=== PATIENT | male | born 1960 | race Caucasian/White ===

== ENCOUNTER 2020-10-11 17:19 | Emergency (ER) | payer BC, OTHER ==
[~2020-10-11] VITALS: Ht 190.5 cm; Wt 97.5 kg
[2020-10-11] MEDS ORDERED: LIDOCAINE 1% VIAL ONE (17:23)
[2020-10-11 17:25] VITALS: BP 148/78
[2020-10-11 17:30] VITALS: BP 148/74
[2020-10-11] MEDS ORDERED: ADACEL VIAL IM ONE ×2 (17:39→18:00)
[2020-10-11] MEDS ORDERED: ULTRAM PO STA (17:39)
[2020-10-11] MEDS ORDERED: TRIPLE ANTIBIOTIC OINTMENT TP ONE (17:40)
[2020-10-11] MEDS ORDERED: ULTRAM ONE (17:41)
--- NOTE | 2020-10-11 17:44 | ER.PDOC ---
General Chief Complaint: Extremities Stated Complaint: HAND INJURY Time seen by MD: 17:40 Source: patient Exam Limitations: no limitations History of Present Illness Initial Comments Laceration of left hand with the knife. Occurred: just prior to arrival Where: home Severity: moderate Context: laceration Location of Injury: (R) hand Modifying Factors: pain on movement Allergies: Coded Allergies: No Known Allergies (Unverified , 10/11/20) Past Medical History Medical History: no pertinent history Surgical History: other Family History Significant Family History: no pertinent family hx Social History Smoking: non-smoker Alcohol Use: none Drug Use: none Review of Systems Constitutional: no symptoms reported EENTM: no symptoms reported Respiratory: no symptoms reported Cardiovascular: no symptoms reported Gastrointestinal: no symptoms reported Skin: see HPI All Other Systems: Reviewed and Negative Physical Exam General Appearance: Alert, No Apparent Distress Hand: see diagram Wrist: nml inspection, non-tender, nml ROM 1 - Lac Neuro: sensation nml, motor nml Vascular: no vascular compromise Tendons: tendon function nml Forearm/Elbow/Arm: uninjured above wrist Head/ENT: nml inspection, pharynx nml Neck/Back: nml inspection, non-tender Resp/CVS: no resp distress, lungs clear, heart sounds nml, reg. rate & rhythm Abdomen: non-tender, no organomegaly ED LACERATION WOUND REPAIR # of Wounds/Lacerations Presen: 1 Wound Location & Length (Requi: Left hand Wound Length (cm): 2 Wound cleaned: betadine Anesthesia: 1% Lidocaine Volume Anesthetic (ccs): 5 Wound's Depth, Shape: linear Irrigated w/ Saline (ccs): 20 Wound Repaired With: sutures Suture Size/Type: 4:0, ethilon Suture Style: interupted Number of Sutures: 3 Sterile Dressing Applied?: Yes Results/Orders Results/Orders Orders - RIMMA ROMERO MD Diph,Pertuss(Acell),Tet Vac/Pf (Adacel V (10/11/20 18:00) Tramadol Hcl (Ultram) (10/11/20 17:39) Vital Signs Date Time Temp Pulse Resp B/P (MAP) Pulse Ox O2 Delivery O2 Flow Rate FiO2 10/11/20 17:30 98.4 87 18 148/74 (98) 97 Room Air 10/11/20 17:25 98.4 87 18 97 10/11/20 17:25 98.4 87 18 ER DEPART Departure Time of Disposition: 17:43 Disposition: 01 HOME / SELF CARE / HOMELESS Impression: Primary Impression: Laceration of hand, left Additional Impression: Hand injury Condition: Stable Referrals: PCP,UNKNOWN (PCP) PRIMARY CARE PROVIDER Additional Instructions: Keflex Tylenol Apply Neosporin daily Remove sutures in 8 days at your PCP or ED Return to ED if any concerns Duration or Time Spent with Pa: 20 min Problem Qualifiers Primary Impression: Laceration of hand, left Encounter type: initial encounter Foreign body presence: without foreign body Qualified Codes: S61.412A - Laceration without foreign body of left hand, initial encounter Additional Impression: Hand injury Encounter type: initial encounter Laterality: left Qualified Codes: S69.92XA - Unspecified injury of left wrist, hand and finger(s), initial encounter RIMMA ROMERO MD Oct 11, 2020 17:44
[2020-10-11 17:52] VITALS: BP 141/68
== END 2020-10-11 17:51 ==
LOC: ER 17:19
DX: S61.412A Laceration without foreign body of left hand, initial encounter (principal); W26.0XXA Contact with knife, initial encounter; Y93.89 Activity, other specified; Y92.89 Other specified places as the place of occurrence of the external cause; Y99.8 Other external cause status
CPT/HCPCS: 12001; 90471; 90715; 99284; J2001

== ENCOUNTER 2020-12-11 09:40 | Emergency (ER) | payer BC ==
[~2020-12-11] VITALS: Ht 190.5 cm; Wt 99.8 kg
[2020-12-11 09:49] VITALS: BP 153/93
[2020-12-11 09:54] VITALS: BP 153/93
--- NOTE | 2020-12-11 10:10 | ER.PDOC ---
General Chief Complaint: Pediatric Ingestion/FB Stated Complaint: PILL STUCK IN THROAT TRAVEL OUT OF US: No Time seen by MD: 10:00 Source: patient Exam Limitations: no limitations History of Present Illness Initial Comments Patient is a 59-year-old man who presents the emergency department with chief complaint of having difficulty swallowing. Patient states he took an Ese-D about 20 hours ago and states he can still feel the pills stuck in his esophagus. He states he had problems with his swallowing for the last 5 to 6 years but is never had it checked. He states he has been unable to drink liquids without regurgitation. He states he is unable to swallow solid foods. He denies any chest pain or difficulty breathing. He denies any fever or diarrhea. He denies any cough. He also states that he is normally on Adderall for ADD but is traveling to [place] for work and has been unable to get his medications refilled. Timing/Duration: 24 hours, getting worse Severity: moderate Modifying Factors: improves with other (Nothing) Associated Symptoms: chest pain (None), cough (None) Allergies: Coded Allergies: No Known Allergies (Unverified , 10/11/20) Past Medical History Medical History: asthma, hypertension, other (ADD) Surgical History: other Family History Significant Family History: no pertinent family hx Social History Smoking: non-smoker Alcohol Use: none Drug Use: marijuana Review of Systems Constitutional: denies fever EENTM: denies throat pain Respiratory: denies cough, denies shortness of breath Cardiovascular: denies chest pain Gastrointestinal: denies diarrhea, denies nausea; vomiting Genitourinary: denies pain Musculoskeletal: denies neck pain Skin: denies rash Psychiatric/Neurological: denies anxiety Hematologic/Lymphatic: denies easy bleeding All Other Systems: Reviewed and Negative Physical Exam General Appearance: No Apparent Distress, WD/WN EENT: eyes nml inspection, nml ENT inspection, pharynx nml Neck: Non-Tender, Full Range of Motion, Supple Respiratory: chest non-tender, lungs clear, normal breath sounds, no respiratory distress CVS: reg rate & rhythm, no murmur, no gallop Gastrointestinal: Normal Bowel Sounds, No Organomegaly, No Pulsatile Mass, Non Tender Back: Normal Inspection, No CVA Tenderness, No Vertebral Tenderness Extremities: Normal Range of Motion, Non-Tender, Normal Inspection, No Pedal Edema Neurologic/Psychiatric: customer relations advisor II-XII NML as Tested, No Motor/Sensory Deficits, Alert, Normal Mood/Affect, Oriented x 3 Skin: Normal Color Results/Orders Results/Orders Orders - DELVIS RAMÍREZ MD Xr Chest 2v (12/11/20 10:03) Cbc With Auto Diff (12/11/20 11:36) Comprehensive Metabolic Panel (12/11/20 11:36) Saline Lock (12/11/20 11:36) Ct Chest W Iv Contrast (12/11/20 11:36) Vital Signs Date Time Temp Pulse Resp B/P (MAP) Pulse Ox O2 Delivery O2 Flow Rate FiO2 12/11/20 09:54 98.5 98 20 153/93 (113) 97 Room Air 12/11/20 09:49 98.5 98 20 97 12/11/20 09:49 98.5 98 20 Laboratory Tests Test 12/11/20 11:50 White Blood Count 12.8 10^3/uL (4.5-11.0) H Red Blood Count 4.87 10^6/uL (4.50-5.90) Hemoglobin 14.8 g/dL (13.9-16.3) Hematocrit 44.6 % (37.0-53.0) Mean Corpuscular Volume 91.6 fL (78-100) Mean Corpuscular Hemoglobin 30.4 pg (26-34) Mean Corpuscular Hemoglobin Concent 33.2 g/dL (33-36.5) Red Cell Distribution Width 13.6 % (11.5-14.5) Platelet Count 247 10^3/uL (150-400) Mean Platelet Volume 9.3 fL (7.8-11.0) Neutrophils (%) (Auto) 76.6 % (41.0-85.0) Lymphocytes (%) (Auto) 15.6 % (24.0-44.0) L Monocytes (%) (Auto) 5.8 % (5.0-12.0) Neutrophils # (Auto) 9.8 10^3/uL (1.8-7.7) H Lymphocytes # (Auto) 2.00 10^3/uL1 (1.0-4.8) Monocytes # (Auto) 0.7 10^3/uL (0.3-0.8) Absolute Immature Granulocyte (auto 0.03 10^3 u/L (0-2) Absolute Eosinophils (auto) 0.2 10^3/uL (0.0-0.2) Immature Granulocytes % 0.20 % (0.00-0.50) Eosinophils % 1.6 % (0.0-5.0) Basophils % 0.2 % (0.0-0.2) Basophils # 0.0 10^3/uL (0.0-0.1) Sodium Level 142 mmol/L (132-145) Potassium Level 4.4 mmol/L (3.6-5.2) Chloride Level 105.0 mmol/L (96-109) Carbon Dioxide Level 26.4 mmol/L (20.0-32) Anion Gap 15.0 Blood Urea Nitrogen 13 mg/dL (7-18) Creatinine 1.12 mg/dL (0.59-1.40) Estimated GFR () 81.5 (>/=60) Est GFR (CKD-EPI)(Non-Afr Swiss) 67.3 (>/=60) BUN/Creatinine Ratio 11.0 Glucose Level 96 mg/dL (70-110) Calcium Level 9.8 mg/dL (8.4-10.5) Total Bilirubin 0.8 mg/dL (0.2-1.0) Aspartate Amino Transferase (AST) 12 U/L (0-35) Alanine Aminotransferase (ALT) 20 U/L (12-78) Alkaline Phosphatase 107 U/L (50-136) Total Protein 8.1 g/dL (6.4-8.2) Albumin 4.1 g/dL (3.4-5.0) Globulin 4.0 Albumin/Globulin Ratio 1.025 Progress Progress Patient stated he was unable to swallow liquids or solids. He also states he was unable to swallow the pill and had foreign body sensation in his throat. He had a chest x-ray that showed mild COPD changes but no evidence of mass or swelling in the mediastinum. Since his x-ray was negative he had a CBC and CMP done both which were normal. He underwent CT of the chest which shows small hiatal hernia, bilateral pulmonary nodules measuring up to 8 mm in the left lower lobe, no other acute findings per the radiologist. Throughout the course of his emergency department stay he was ultimately able to swallow water without difficulty and his foreign body sensation improved. He will need an EGD for further evaluation and treatment of his esophagus. At [address] Castrejon of general surgery who stated he could call The office for an appointment to schedule EGD.Patient does not appear to have mediastinal mass, bulky lymphadenopathy, pulmonary tumor, pulmonary infection, retained foreign body, aortic aneurysm, or other serious etiology of his symptoms. Patient will be discharged home to follow-up with general surgery. I am unable to provide a prescription for his Adderall and he was given referrals for other physicians that might be able to help him with his medication refill. ER DEPART Departure Time of Disposition: 14:20 Disposition: 01 HOME / SELF CARE / HOMELESS Impression: Primary Impression: Difficulty swallowing Condition: Stable If Transfer, List PT Destinati: 1420 Dr. Castrejon agrees to see pt. in office to schedule EGD Referrals: PCP,UNKNOWN (PCP) PRIMARY CARE PROVIDER Additional Instructions: Return immediately if severe pain, difficulty breathing, difficulty swallowing, unable to swallow liquids, persistent vomiting, fever. Liquid diet. Drink lots of fluids. Follow-up with Dr. Benny Castrejon [address] [facility], phone [phone]. Follow-up with primary care physician or psychiatrist for Adderall refill Duration or Time Spent with Pa: 40 min Return to Work/School Can a patient return to work?: Yes Problem Qualifiers Primary Impression: Difficulty swallowing Dysphagia type: unspecified Qualified Codes: R13.10 - Dysphagia, unspecified DELVIS RAMÍREZ MD Dec 11, 2020 10:10
[2020-12-11 10:50] VITALS: BP 146/87
--- NOTE | 2020-12-11 11:31 | DIREP ---
PROCEDURE:CHEST 2 VIEWS COMPARISON:None. INDICATIONS:difficulty swallowing FINDINGS: LUNGS/PLEURA:No significant pulmonary parenchymal abnormalities. No effusions. VASCULATURE:Normal. Unremarkable pulmonary vasculature. CARDIAC:Normal. No cardiac silhouette abnormality or cardiomegaly. MEDIASTINUM:Normal. No visible mass or adenopathy. BONES:Mild degenerative disc disease and spondylosis without visible acute abnormalities. OTHER:Negative. CONCLUSION:No acute disease. Dictated by: Sebastian Perez MD on 12/11/2020 at 11:29 AM
[2020-12-11 11:55] LABS: BASOPHIL % 0.2 % (0.0-0.2); EOSINOPHIL # 0.2 10^3/uL (0.0-0.2); EOSINOPHIL % 1.6 % (0.0-5.0); LYMPHOCYTES % 15.6 % (24.0-44.0); MEAN CORP HGB 30.4 pg (26-34); MONOCYTES # 0.7 10^3/uL (0.3-0.8); MONOCYTES % 5.8 % (5.0-12.0); NEUTROPHIL # 9.8 10^3/uL (1.8-7.7); NEUTROPHILS % 76.6 % (41.0-85.0); PLATELET COUNT 247 10^3/uL (150-400); RED CELL DISTRIBUTION WIDTH 13.6 % (11.5-14.5)
[2020-12-11 12:15] VITALS: BP 130/80
[2020-12-11 12:46] LABS: CALCIUM 9.8 mg/dL (8.4-10.5); CARBON DIOXIDE 26.4 mmol/L (20.0-32)
--- NOTE | 2020-12-11 13:52 | DIREP ---
PROCEDURE:CT CHEST WITH CONTRAST COMPARISON:None. INDICATIONS:unable to swallow TECHNIQUE:Helical sections through the chest were performed from the lung apices through the diaphragms with IV contrast. Sagittal and coronal reconstructions are obtained from source images. FINDINGS: LUNGS:Trachea main pulmonary bronchi are patent. No focal consolidation or edema. Scattered bilateral pulmonary nodules measuring up to 8 mm in diameter at the left lower lobe image 60 series 2 and 6 mm in the right middle lobe image 54 series 2. The right middle lobe nodule is triangular in shape, possibly representing intrapulmonary lymph node. PLEURA:Normal. No mass or effusion. CARDIAC:Normal. No enlargement, pericardial thickening, or significant calcification. MEDIASTINUM:No mediastinal lymphadenopathy by CT size criteria. Small hiatal hernia with sub cm distal paraesophageal lymph nodes. HERNANDEZ:Normal. No mass or adenopathy. AORTA:Normal. No aneurysm. CHEST WALL:Normal. No mass or axillary adenopathy. LIMITED ABDOMEN:Hepatic steatosis. Rounded fluid densities in the right hepatic lobe may represent cysts. BONES:Degenerative change of the thoracic spine. No aggressive osseous lesion. OTHER:Negative. CONCLUSION: No CT evidence of acute thoracic pathology. Small hiatal hernia. Bilateral pulmonary nodules measuring up to 8 mm at the left lower lobe. Recommend short interval follow-up with low-dose noncontrast chest CT in 3-6 months to assess for stability. Dictated by: Theodore Quinteros MD on 12/11/2020 at 01:44 PM
[2020-12-11 14:25] VITALS: BP 136/84
== END 2020-12-11 14:25 | disposition home or self-care (01) ==
LOC: ER 09:40
DX: R13.10 Dysphagia, unspecified (principal); K44.9 Diaphragmatic hernia without obstruction or gangrene; J45.909 Unspecified asthma, uncomplicated; I10 Essential (primary) hypertension
CPT/HCPCS: 36415; 71046; 71260; 80053; 85025; 99285; Q9965

== ENCOUNTER 2021-01-10 08:10 | Day surgery (SDC) | payer BC ==
[2021-01-04 15:37] VITALS: BP 108/68
--- NOTE | 2021-01-04 15:59 | PCM.EKG ---
[facility] Test Date: 2021-01-04 Test Time: 15:48:44 Pat Name: IMTIAZ MANCINI Department: Room: Gender: M Shuttle Fixer: AMARA : 1960 Requested By: RAFA ASKEW Order Number: [id number] Reading MD: Pillo Munoz Measurements Intervals [place] Rate: 57 P: 75 [place]: 162 QRS: -8 QRSD: 122 T: 35 QT: 422 QTc: 410 Interpretive Statements Sinus bradycardia No previous ECG available for comparison Electronically Signed On 01-08-2021 6:32:10 CDT by Pillo Munoz Please click the below link to view image of tracing.
[2021-01-04 16:05] LABS: BASOPHIL % 0.4 % (0.0-0.2); EOSINOPHIL # 0.6 10^3/uL (0.0-0.2); EOSINOPHIL % 6.5 % (0.0-5.0); LYMPHOCYTES # 2.87 10^3/uL1 (1.0-4.8); MONOCYTES # 0.8 10^3/uL (0.3-0.8); MONOCYTES % 7.9 % (5.0-12.0); NEUTROPHIL # 5.6 10^3/uL (1.8-7.7); NEUTROPHILS % 56.1 % (41.0-85.0); PLATELET COUNT 232 10^3/uL (150-400); RED CELL DISTRIBUTION WIDTH 13.7 % (11.5-14.5)
[2021-01-04 16:26] LABS: CALCIUM 8.8 mg/dL (8.4-10.5); CARBON DIOXIDE 24.3 mmol/L (20.0-32)
[~2021-01-10] VITALS: Ht 200.7 cm; Wt 113.4 kg
[~2021-01-10 08:10] MED LIST: ALBU8.5H7 IH; ASCO1TAB PO; BUDE10.2 IH; CETI10TA77 PO; LACTATED RINGERS 1,000 ML IV SCH; LACTATED RINGERS 1,000 ML ONE; LISI10TA20 PO; PRAV20TA2 PO; VERSED ONE
[2021-01-10 08:21] VITALS: BP 115/78
[2021-01-10 10:30] VITALS: BP 123/77
[2021-01-10 10:45] VITALS: BP 136/78
--- NOTE | 2021-01-10 10:53 | DIREP ---
PROCEDURE:CHEST 1 VIEW COMPARISON:[facility], CT, CT CHEST W/CONTRAST, 12/11/2020, 01:02 PM. [facility], CR, XRAY CHEST 2 VWS, 12/11/2020, 10:58 AM. INDICATIONS:POST OP EGD FINDINGS: LUNGS/PLEURA:There is a linear infiltrate in the retrocardiac lung VASCULATURE:Normal. Unremarkable pulmonary vasculature. CARDIAC:Normal. No cardiac silhouette abnormality or cardiomegaly. MEDIASTINUM:Normal. No visible mass or adenopathy. BONES:Normal. No fracture or visible bony lesion. OTHER:Negative. CONCLUSION:Probable subsegmental atelectasis present in the retrocardiac lung Dictated by: Mojgan Sousa M.D. on 01/10/2021 at 09:50 AM Read in [place]
[2021-01-10 10:59] VITALS: BP 144/66
[2021-01-10 11:15] VITALS: BP 131/79
--- NOTE | 2021-01-10 11:54 | PRM.OPH ---
Immediate Post Op Report Immediate Post Op Report Imediate Post Op Report Preop diagnosis Dysphagia Postoperative diagnosis Dysphagia Hiatal hernia Procedure EGD with balloon dilatation of the esophagus Surgeon Dr. Castrejon Anesthesia MAC EBL Minimal Specimen None Complication None ILIANA CASTREJON MD Jan 10, 2021 11:53
--- NOTE | 2021-01-10 12:02 | PRM.OPH ---
OPERATIVE REPORT OPERATIVE REPORT The patient was initially seen and identified in the preoperative area. After confirming their identity, H&P, consents, and making sure that all her questions were answered, the patient was transferred from the preop area to the endoscopy suite. Patient was hooked up to appropriate anesthesia monitors, bite block placed, given monitored anesthesia, and placed in the left lateral decubitus position. Once patient was appropriately sedated the procedure began by insertion of the gastroscope into the oral cavity. Under direct visualization the scope was advanced into the pharynx and with a little bit of air we could identify the opening into the esophagus and the scope was advanced down the esophagus into we got to the lower portion esophagus which was very torturous very collapsed with a very tight opening getting into this stomach which you could feel a pop as we popped into the stomach. Scope was then advanced down to the pylorus and again with great difficulties we are able to get into the duodenum again it was very tight he can feel a pop as we popped into the channel of the pylorus and entered the duodenum and examined the first second and third portions of the duodenum. The duodenum appeared to be normal and pictures were taken. Scope was brought out of the duodenum the stomach was fully insufflated the antrum appeared to be basically normal with a little bit of scope trauma from multiple attempts to get into the duodenum. Scope was placed into retroflexion view revealing the hiatal hernia. Examination of the Hill valve revealed a grade 1 Hill valve. Scope was taken out of retroflexion view the rest the stomach appeared to be relatively normal. Scope was brought back to the GE junction which is at approximately 37- 38 cm from the incisors. The balloon was then introduced into the stomach. Scope was pulled back to approximately 30 cm and the balloon was slowly insufflated under direct visualization making sure there is no signs of any bleeding. It was taken up to 15 mm. Without signs of bleeding. Then taken up to 18 cm without signs of bleeding. It was held for 1 minute. We took as we took down the balloon we could see there was a little bit of bleeding down at the GE junction itself which appeared to be from the gastric mucosa. Scope was advanced approximately 8 cm back the balloon was then reinsufflated to 15 mm. Without signs of bleeding. And then dilated to 16 mm. At this point the dilation gun would not expand any further. (No other dilation gun was available.) It was held for 1 minute. And then deinsufflated scope was advanced back approximately another 8 cm. The balloon was redeployed to 15 mm. There was no evidence of bleeding. The balloon was then dilated to 16 cm. It was held for 1 minute. There was no evidence of any bleeding. At that point the balloon could not be completely pulled through the scope scope was pulled back under direct visualization all the way out the oral cavity so we can advance the balloon forward and cut the lesion apparatus. Scope was then reinserted into the oral cavity advanced back into the pharynx under direct visualization with a puff of air the esophagus was easily identified and the scope was advanced under direct visualization all the way down to the level of the GE junction without difficulty and into the stomach. Reexamination of the stomach was performed. Then the stomach was deinsufflated. The area of bleeding from the gastric mucosa just below the GE junction was not active at this point. Scope was brought back up to the GE junction and the esophagus again was reexamined on the way out taking multiple pictures. Once back out of the esophagus into the pharynx then in the oral cavity and then the patient into the procedure. The patient tolerated the procedure well. ILIANA MACK MD Jan 10, 2021 12:02
== END 2021-01-10 11:17 | disposition home or self-care (01) ==
LOC: SDC 08:10
PROVIDERS: ATTEND Surgery
DX: R13.10 Dysphagia, unspecified (principal); K44.9 Diaphragmatic hernia without obstruction or gangrene; K22.8 Other specified diseases of esophagus; I10 Essential (primary) hypertension; E78.5 Hyperlipidemia, unspecified; Z98.890 Other specified postprocedural states; Z79.899 Other long term (current) drug therapy; Z79.01 Long term (current) use of anticoagulants
CPT/HCPCS: 36415; 43249; 71045; 80053; 85025; 85610; 85730; 93005; J2250; J7120